=== PATIENT | male | born 1970 | race Two or more races ===

== ENCOUNTER 2020-11-14 12:39 | Inpatient (IN) | payer OTHER ==
[2020-11-14 13:26] VITALS: BMI 26.2
[2020-11-14] MEDS ORDERED: IBUPROFEN 400 MG TABLET (FP) PO PRN (13:45)
[2020-11-14] MEDS ORDERED: cloNIDine HCL 0.1 MG TABLET PO PRN (13:45)
[2020-11-14] MEDS ORDERED: MAGNESIUM CITRATE 300 ML BOTTLE PO PRN (13:45)
[2020-11-14] MEDS ORDERED: NICOTINE POLACRILEX 2 MG GUM BUC PRN (13:45)
[2020-11-14] MEDS ORDERED: MAGNESIUM HYDROX 2400MG/30ML ORAL SUSPENSION 30 ML CUP PO PRN (13:45)
[2020-11-14] MEDS ORDERED: methaDONE HCL 10 MG TABLET (FOR DETOX USE ONLY) PO ONE (13:45)
[2020-11-14] MEDS ORDERED: MAG HYDROX/AL HYDROX/SIMETH 30 ML UNIT-DOSE CUP PO PRN (13:45)
[2020-11-14] MEDS ORDERED: BISMUTH SUBSALICYLATE 262 MG/15 ML BTL PO PRN (13:45)
[2020-11-14] MEDS ORDERED: MENTHOL/PHENOL 1 EACH UD MM PRN (13:45)
[2020-11-14] MEDS ORDERED: ACETAMINOPHEN 325 MG TABLET (FP) PO PRN ×2 (13:45)
[2020-11-14] MEDS ORDERED: ONDANSETRON *ODT* 4 MG TABLET SL PRN (13:45)
[2020-11-14] MEDS ORDERED: ALBUTEROL SO4 HFA INHALER IH PRN (13:53)
[2020-11-14] MEDS: diazePAM 5 MG TABLET PO SCH ×2 (18:14→23:05)
[2020-11-14] MEDS: hydrOXYzine PAMOATE 25 MG CAPSULE (FP) PO SCH ×2 (18:15→23:05)
[2020-11-14] MEDS: NICOTINE 14 MG/24 HOURS TOPICAL PATCH TD SCH (18:16)
[2020-11-14] MEDS: THIAMINE HCL 100 MG TABLET (FP) PO SCH (23:05)
[2020-11-14] MEDS: MELATONIN 5 MG TABLETS PO SCH (23:05)
[2020-11-15] MEDS: hydrOXYzine PAMOATE 25 MG CAPSULE (FP) PO SCH ×2 (05:42→10:27)
[2020-11-15] MEDS: diazePAM 5 MG TABLET PO SCH ×4 (05:43→22:16)
[2020-11-15] MEDS ORDERED: methaDONE HCL 10 MG TABLET (FOR DETOX USE ONLY) ONE (09:20)
[2020-11-15] MEDS: PRENATAL VITAMINS W/ FOLIC ACID TABLET (FP) PO SCH (10:25)
[2020-11-15] MEDS: METHOCARBAMOL 500 MG TABLET PO PRN (10:27)
[2020-11-15] MEDS: NICOTINE 14 MG/24 HOURS TOPICAL PATCH TD SCH (10:27)
[2020-11-15 12:31] LABS: HEMATOCRIT 41.9 % (35.4-49); MCH 30.5 pg (25.7-33.7); MCHC 33.4 g/dl (32.0-35.9); MEAN CELL VOLUME 91.5 fl (80-96); MEAN PLT VOLUME 7.7 fl (7.5-11.1); PLATELET COUNT 273 10^3/uL (134-434); RBC 4.58 M/mm3 (4.00-5.60); WHITE BLOOD COUNT 5.1 K/mm3 (4.0-10.0)
[2020-11-15 12:56] LABS: ALBUMIN 3.9 g/dl (3.4-5.0)
[2020-11-15 12:57] LABS: BLOOD UREA NITROGEN 16.3 mg/dL (7-18)
[2020-11-15 13:00] LABS: CREATININE 1.1 mg/dL (0.55-1.3)
[2020-11-15 13:01] LABS: BILIRUBIN,TOTAL 0.5 mg/dL (0.2-1)
[2020-11-15] MEDS: MELATONIN 5 MG TABLETS PO SCH (22:15)
[2020-11-15] MEDS: hydrOXYzine PAMOATE 25 MG CAPSULE (FP) PO PRN (22:16)
[2020-11-15] MEDS: THIAMINE HCL 100 MG TABLET (FP) PO SCH (22:16)
[2020-11-16] MEDS: diazePAM 5 MG TABLET PO SCH ×4 (05:49→23:40)
[2020-11-16] MEDS ORDERED: methaDONE HCL 10 MG TABLET (FOR DETOX USE ONLY) PO ONE (10:00)
[2020-11-16] MEDS: NICOTINE 14 MG/24 HOURS TOPICAL PATCH TD SCH (10:06)
[2020-11-16] MEDS: diazePAM 5 MG TABLET PO PRN (10:07)
[2020-11-16] MEDS: METHOCARBAMOL 500 MG TABLET PO PRN (10:07)
[2020-11-16] MEDS: PRENATAL VITAMINS W/ FOLIC ACID TABLET (FP) PO SCH (10:07)
[2020-11-16 21:45] LABS: URINE APPEARANCE CLEAR; URINE BILIRUBIN NEGATIVE (NEGATIVE); URINE COLOR YELLOW; URINE GLUCOSE (UA) NEGATIVE (NEGATIVE); URINE KETONE NEGATIVE (NEGATIVE); URINE LEUK ESTERASE NEGATIVE (NEGATIVE); URINE NITRITE NEGATIVE (NEGATIVE); URINE PROTEIN NEGATIVE (NEGATIVE); URINE UROBILINOGEN 0.2 mg/dL (0.2-1.0)
[2020-11-16] MEDS: THIAMINE HCL 100 MG TABLET (FP) PO SCH (22:50)
[2020-11-16] MEDS: MELATONIN 5 MG TABLETS PO SCH ×2 (22:50→23:41)
[2020-11-16] MEDS: hydrOXYzine PAMOATE 25 MG CAPSULE (FP) PO PRN (23:37)
[2020-11-17] MEDS: METHOCARBAMOL 500 MG TABLET PO PRN (01:05)
[2020-11-17] MEDS: diazePAM 5 MG TABLET PO PRN (01:10)
[2020-11-17] MEDS ORDERED: diazePAM 5 MG TABLET PO SCH (06:00)
[2020-11-17 09:00] VITALS: BP 109/72; PULSE 66; TEMP 96.9
[2020-11-18] MEDS ORDERED: diazePAM 5 MG TABLET PO ONE (06:00)
[2020-11-18] MEDS ORDERED: methaDONE HCL 10 MG TABLET (FOR DETOX USE ONLY) PO ONE (10:00)
== END 2020-11-17 09:43 | disposition left against medical advice (07) | DRG 770 ==
LOC: YASAS 12:39 → Y3N 14:38
PROVIDERS: ADMIT Allergy & Immunology; ATTEND Allergy & Immunology
PROC: HZ2ZZZZ Detoxification Services for Substance Abuse Treatment (ICD-10-PCS; principal; 2020-11-14)
DX: F11.23 Opioid dependence with withdrawal (principal); F10.230 Alcohol dependence with withdrawal, uncomplicated; F14.20 Cocaine dependence, uncomplicated; F17.210 Nicotine dependence, cigarettes, uncomplicated; F43.10 Post-traumatic stress disorder, unspecified; H91.91 Unspecified hearing loss, right ear; G47.00 Insomnia, unspecified; Z62.810 Personal history of physical and sexual abuse in childhood; Z86.19 Personal history of other infectious and parasitic diseases; Z91.011 Allergy to milk products; Z59.0 Homelessness
CPT/HCPCS: 36415; 80053; 81003; 85027; 86593; 86780; 93005; 93010; C9803; Q0162; U0003; U0005